=== PATIENT | female | born 1980 | race Caucasian/White ===

== ENCOUNTER 2020-05-21 19:09 | Emergency (ER) | payer SELFPAY ==
[~2020-05-21] VITALS: Ht 160 cm; Wt 56.7 kg
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
[2020-05-21 19:56] LABS: BASOPHILS # (AUTO) 0.1 /CMM (0.0-0.2); EOSINOPHILS % (AUTO) 2.1 % (0.0-6.0); HEMATOCRIT 37 % (33-45); HEMOGLOBIN 12.6 g/dL (11.5-14.8); LYMPHOCYTES # (AUTO) 2.3 /CMM (0.8-4.8); LYMPHOCYTES % (AUTO) 31.5 % (20.0-44.0); MEAN CORPUSCULAR HGB CONC 34 g/dl (31.0-36.0); MEAN CORPUSCULAR VOLUME 95 fL (82-100); MONOCYTES # (AUTO) 0.3 /CMM (0.1-1.30); MONOCYTES % (AUTO) 4.3 % (2.0-12.0); NEUTROPHILS # (AUTO) 4.4 /CMM (1.8-8.9); NEUTROPHILS % (AUTO) 61.1 % (43.0-81.0); PLATELET COUNT (AUTO) 334 /CMM (150-450); RED BLOOD CELL COUNT(AUTO) 3.87 MIL/uL (4.0-5.2); WHITE BLOOD COUNT (AUTO) 7.2 K/uL (4.3-11.0)
[2020-05-21] MEDS ORDERED: LORAZEPAM INJ 2 MG/ML VIAL ONE (19:56)
[2020-05-21] MEDS: LORAZEPAM INJ 2 MG/ML VIAL IV ONE (20:01)
[2020-05-21 20:07] LABS: CALCIUM, SERUM 8.1 mg/dL (8.5-10.1); CREATININE 0.6 mg/dL (0.6-1.3); POTASSIUM 4.4 mmol/L (3.5-5.1)
[2020-05-21 20:14] LABS: BILIRUBIN,TOTAL 0.2 mg/dL (0.2-1.0); SALICYLATE 4.1 mg/dL (2.8-20.0); TOTAL PROTEIN, SERUM 7.8 g/dL (6.4-8.2)
--- NOTE | 2020-05-21 20:25 | NUR ---
DAVID FARRAR (PT'S FRIEND)
--- NOTE | 2020-05-21 21:14 | NUR ---
PT RESTING COMFORTABLY IN BED. VSS. NO ACUTE DISTRESS NOTED. WILL CONTINUE TO MONITOR. SITTER AT BEDSIDE FOR SAFETY
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
--- NOTE | 2020-05-21 21:21 | NUR ---
JAYCEE WESTON, PT'S BROTHER [phone]
[2020-05-21] MEDS ORDERED: OLANZAPINE 10 MG VIAL IM ONE (21:25)
[2020-05-21] MEDS: OLANZAPINE 10 MG VIAL IM ONE (21:29)
--- NOTE | 2020-05-21 21:39 | NUR ---
PT MEDICATED ORDERED.
--- NOTE | 2020-05-21 21:48 | NUR ---
TOÑA, PT'S SISTER [phone]
--- NOTE | 2020-05-22 00:24 | NUR ---
PT RESTING COMFORTABLY IN BED. VSS. NO ACUTE DISTRESS NOTED. WILL CONTINUE TO MONITOR. SITTER AT BEDSIDE FOR SAFETY
--- NOTE | 2020-05-22 02:20 | NUR ---
PT ASLEEP. VSS. RISSA CUTE DISTRESS NOTED. SITTER AT BEDSIDE FOR SAFETY. WILL CONTINUE TO MONITOR
--- NOTE | 2020-05-22 05:08 | NUR ---
PIVK UP TIME 0700
--- NOTE | 2020-05-22 07:38 | NUR ---
PT'S RIDE IS ON THE WAY, TOÑA, PT'S SISTER
--- NOTE | 2020-05-22 08:01 | NUR ---
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
--- NOTE | 2020-05-22 08:03 | NUR ---
Note geoffone in EDM - 05/22/20 at 0804 by EDMAR IV removed. Catheter intact and site benign. Pressure and 4x4 applied to site. No bleeding noted. Patient discharged to home in stable condition. Written and verbal after care instructions given. Patient verbalizes understanding of instruction.
--- NOTE | 2020-05-22 08:04 | NUR ---
NO IV SALINE NOTED ON THE PATIENT.
[2020-05-22 08:05] VITALS: BP 121/71
--- NOTE | 2020-05-22 08:05 | NUR ---
Patient discharged to home in stable condition. Written and verbal after care instructions given. Patient verbalizes understanding of instruction.
== END 2020-05-22 08:05 | disposition home or self-care (01) ==
LOC: ER 19:10
DX: F10.129 Alcohol abuse with intoxication, unspecified (principal); Y90.8 Blood alcohol level of 240 mg/100 ml or more
CPT/HCPCS: 36415; 80048; 80076; 80307; 80329; 84702; 85025; 96372; 96374; 99285; G0480; J2060; J3490